=== PATIENT | male | born 1995 ===

== ENCOUNTER → 2018-01-16 | Outpatient (CLI) | payer OTHER | LOC: LAB SHORT 09:45 | DX: F32.9 Major depressive disorder, single episode, unspecified (principal) | CPT/HCPCS: 82306; 82533 ==

== ENCOUNTER → 2018-02-20 | Outpatient (CLI) | payer OTHER ==
[~2018-02-20] MED LIST: PROM25 PO; [UNRECOGNIZED DRUG - OTHER]
== END ==
LOC: LAB SHORT 08:00 → LAB 08:00
DX: R94.7 Abnormal results of other endocrine function studies (principal)
CPT/HCPCS: 82533